=== PATIENT | female | born 1970 | race African-American/Black ===

== ENCOUNTER 2016-12-01 22:14 | Emergency (ER) | payer OTHER ==
[~2016-12-01] VITALS: Ht 162.6 cm; Wt 81.7 kg
[~2016-12-01 22:14] MED LIST: BENTYL10 MG PO; CATAFLAM50 MG PO; HYDROCHLOROTH12.5 MG PO; NORCO 5-325 TA1 EACH PO; VALACYCLOVIR1000 MG PO
[2016-12-01] MEDS ORDERED: ULTRAM 50MG TAB50 MG PO (23:47)
== END 2016-12-01 23:54 | disposition home or self-care (01) ==
LOC: ER 22:14
DX: M79.89 Other specified soft tissue disorders (principal); K51.90 Ulcerative colitis, unspecified, without complications; F10.99 Alcohol use, unspecified with unspecified alcohol-induced disorder